=== PATIENT | female | born 1940 | race Caucasian/White ===

== ENCOUNTER 2022-11-18 14:01 | Observation (INO) | payer BC, OTHER ==
[~2022-11-18] VITALS: Ht 167.6 cm; Wt 57.4 kg
--- NOTE | 2022-11-18 14:24 | NUR ---
EKG DONE BY ED
--- NOTE | 2022-11-18 14:25 | NUR ---
PT BIB EMS FROM HOME WITH C/O PALPITATIONS, CHEST PAIN AT HOME, WITH DIZZINESS. PT IS COMPLAINING OF A-FIB. HX - DM, HTN, HYPERLIP, CHF, A-FIB, OSTEOARTHRITIS. 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 PENDING MD SOTELO AND ORDERS.
[2022-11-18] MEDS ORDERED: NITROGLYCERIN 0.4 MG TAB.SUBL SL ONE (14:30)
--- NOTE | 2022-11-18 14:40 | NUR ---
DR. ABEBE AT BEDSIDE EXAMINING THE PT.
--- NOTE | 2022-11-18 15:57 | NUR ---
covid swab collected
[2022-11-18 16:00] LABS: BASOPHILS % (AUTO) 0.2 % (0.0-2.0); EOSINOPHILS % (AUTO) 0.2 % (0.0-4.0); HEMATOCRIT 30.5 % (36-48); HEMOGLOBIN 10.4 g/dL (12.0-16.0); LYMPHOCYTES # (AUTO) 0.5 K/uL (1.0-5.5); LYMPHOCYTES % (AUTO) 7.1 % (20.5-51.5); MEAN CORPUSCULAR HEMOGLOBIN 30 pg (27-31); MEAN CORPUSCULAR HGB CONC 34 % (32-36); MEAN CORPUSCULAR VOLUME 87 fL (79.0-98.0); MONOCYTES # (AUTO) 0.2 K/uL (0.0-1.0); MONOCYTES % (AUTO) 3.9 % (1.7-9.3); NEUTROPHILS # (AUTO) 5.7 K/uL (1.8-7.7); NEUTROPHILS % (AUTO) 88.6 % (40.0-70.0); PLATELET COUNT (AUTO) 229 K/uL (130-430); RED BLOOD CELL COUNT(AUTO) 3.52 MIL/uL (4.2-6.2); RED CELL DISTRIBUTION WIDTH 14.3 % (9.0-15.0); WHITE BLOOD COUNT (AUTO) 6.4 K/uL (4.8-10.8)
[2022-11-18 16:10] LABS: ANION GAP 9 (5-15); CALCIUM 9.8 mg/dL (8.4-11.0); CHLORIDE 106 mmol/L (98-107); CREATININE 1.53 mg/dL (0.55-1.30); GLUCOSE 173 mg/dL (70-99); UREA NITROGEN, BLOOD 22 mg/dL (8-21)
[2022-11-18 16:23] LABS: ALANINE AMINOTRANSFERASE 23 U/L (12-78); ALBUMIN 3.4 g/dL (3.4-4.8); ASPARTATE AMINOTRANSFERASE 23 U/L (10-37); PHOSPHORUS 2.6 mg/dL (2.7-4.5); THYROID STIMULATING HORMONE 2.03 uIu/mL (0.34-4.82); TOTAL BILIRUBIN 0.8 mg/dL (0.0-1.0)
--- NOTE | 2022-11-18 17:11 | NUR ---
Note enidsruthi in EDM - 11/18/22 at 1739 by JERZY Admit bed requested Patient will be admitted to care of . Admitted to tele unit. Diagnosis CHF Inpatient (Yes or No) y Observation (Yes or No) n Orientation concerns or request close to nursing station (Yes or No) n Covid Status negative On vent or bipap no Isolation requirements no Needs a sitter no From Home (Yes or if No enter name of facility) home Requires Dialysis (Yes or No) no Med Rec Completed (Yes of No) pending
[2022-11-18] MEDS ORDERED: FUROSEMIDE 20 MG/2 ML VIAL IVP ONE (17:15)
--- NOTE | 2022-11-18 17:39 | NUR ---
Admit bed requested Patient will be admitted to care of . Admitted to TELE unit. Diagnosis CHF Inpatient (Yes or No) Y Observation (Yes or No) N Orientation concerns or request close to nursing station (Yes or No) N Covid Status NEG On vent or bipap NO Isolation requirements NO Needs a sitter NO From Home (Yes or if No enter name of facility) HOME Requires Dialysis (Yes or No) NO Med Rec Completed (Yes of No) PENDING
[2022-11-18] MEDS ORDERED: CITA20TA16 PO (18:18)
[2022-11-18] MEDS ORDERED: APIX5TAB4 PO (18:18)
[2022-11-18] MEDS ORDERED: METO25TA3 PO (18:18)
[2022-11-18] MEDS ORDERED: LOSA50TA28 PO (18:18)
[2022-11-18] MEDS ORDERED: METF-1069 PO (18:18)
[2022-11-18] MEDS ORDERED: LEVO25CA4 PO (18:18)
[2022-11-18] MEDS ORDERED: PRO40 PO (18:18)
[2022-11-18] MEDS ORDERED: ATOR-1 PO (18:18)
[2022-11-18] MEDS ORDERED: GABA300T25 PO (18:18)
[2022-11-18] MEDS ORDERED: METO50CA PO (18:18)
--- NOTE | 2022-11-18 21:55 | NUR ---
ADMISSION ASSESSMENT NOTES; pt. admitted from ER, report given by nurse Gonzalez, will be admitted by nurse Lion. oriented to room, use of call light. on safety precautions. placed on sander hand and shows artrial fib, controlled rate. on room air, denies shortness of breath. noted some productive cough. when auscultated. no edema. IV lock on left ac, call light within reach.
--- NOTE | 2022-11-18 22:27 | NUR ---
Patient will be admitted to care of [facility]. Admitted to unit. Will go to room . Belongings list completed. Complete and up to date summary report printed. SBAR report to be given at bedside with opportunity for questions.
[2022-11-18 22:30] VITALS: BP_SYST 147
[2022-11-18 22:31] VITALS: BP_SYST 147
[2022-11-19 00:01] VITALS: BP_SYST 130
--- NOTE | 2022-11-19 00:15 | NUR ---
NOTES: pt. still awake, resting and checking her phone. ambulated earlier to void wit assist.
--- NOTE | 2022-11-19 02:08 | NUR ---
NOTES: pt. called and c/o she is having problem to breathe, checked O2 sat 100%. placed O2 @ 2 liters/nc for comfort, feeling a little better. instructed to call for any further problem.
--- NOTE | 2022-11-19 05:00 | NUR ---
NOTES: condition observed. no further complaints.
--- NOTE | 2022-11-19 06:57 | NUR ---
CLOSING NOTES; AWAKENED, AMBULATED TO RESTROOM WITH ASSIST. NO FURTHER COMPLAINTS. WILL ENDORSE TO INCOMING SHIFT. CALL LIGHT WITHIN REACH.
[2022-11-19 08:00] VITALS: BP_SYST 161
--- NOTE | 2022-11-19 08:46 | NUR ---
CONSULTATION PAGED/CALLED Reason for Consultation: [] CHF Person Who was Notified: [] DR Tammie DICKERSON Consulting Physician: [] SANTO LIVINGSTON PICKER OPERATOR FOR DR DICKERSON Pipeliner Specialty: [] CARDIO Ordering Physician: [] DR SMITH
--- NOTE | 2022-11-19 10:00 | NUR ---
CALLED DR. NAVA'S EXCHANGE AND IT WAS DR. SMITH MANAGED CARE PROVIDER. SPOKE TO DR. SMITH AND MADE HIM AWARE THAT THE PATIENT CAME LAST NIGHT AND HER MEDS ARE NOT RECONCILED AND SOME MEDS ARE NOT PUT IN. MD SAID TO GO AHEAD UPDATE THE HOME MEDS AND HE'LL BE HERE SHORTLY. ALSO MADE MD AWARE THAT PATIENT HAS DIABETES AND THERE'S NO ORDER FOR INSULIN. BLOOD SUGAR @ 0700 WAS 172, PATIENT HAS A CCHO DIET AND EATING. PATIENT'S COMFORTABLE AT THIS TIME, NO C/O PAIN OR DISCOMFORT, NO S/S OF RESPIRATORY DISTRESS.
[2022-11-19] MEDS ORDERED: ASPI-1155 PO (12:05)
[2022-11-19] MEDS ORDERED: TOP25 PO (12:05)
[2022-11-19] MEDS ORDERED: FURO-150 PO (12:05)
[2022-11-19] MEDS ORDERED: PRED20TA PO (12:05)
[2022-11-19] MEDS ORDERED: AMIO100T4 PO (12:09)
[2022-11-19] MEDS ORDERED: MULT-1089 PO (12:09)
[2022-11-19 13:00] VITALS: BP_SYST 114
--- NOTE | 2022-11-19 13:06 | NUR ---
Blood Sugar is 136. Patient is Diabetic, awaiting for MD to write admission orders.
[2022-11-19] MEDS ORDERED: METOPROLOL SUCCINATE 50 MG TAB.SR.24H (TOPROL XL) PO ONE (15:00)
[2022-11-19] MEDS ORDERED: FUROSEMIDE 20 MG TABLET PO ONE (15:00)
[2022-11-19] MEDS ORDERED: APIXABAN 2.5 MG TABLET PO ONE (15:00)
[2022-11-19 16:10] VITALS: BP_SYST 107
[2022-11-19 18:11] VITALS: BP_SYST 109
--- NOTE | 2022-11-19 18:55 | NUR ---
D/C Patient to home via personal vehicle, picked up by marty. Patient given medication reconciliation form and D/C instructions. Exit Care provided. Patient verbalized understanding. MD discussed with patient the results and treatment provided. Ambulatory with steady gait for discharge to home. Patient in stable condition, ID band removed. IV catheter removed, intact and dressing applied, no active bleeding. Patient educated on heart failure. All belongings sent with patient. Patient had an appointment with PCP Monday but was cancelled due to came to ER. Patient stated, that she'll call PCP the first thing on Monday for an appointment. Patient is a/o x4, verbally responsive in no acute distress, no c/o dizziness, chest pain or discomfort. BP 109/59; MS 68; RR 18; o2 sat on RA 98-100%. Denies any pain or discomfort.
[2022-11-19] MEDS ORDERED: APIXABAN 2.5 MG TABLET PO SCH (21:00)
[2022-11-20] MEDS ORDERED: FUROSEMIDE 20 MG TABLET PO SCH (09:00)
[2022-11-20] MEDS ORDERED: METOPROLOL SUCCINATE 50 MG TAB.SR.24H (TOPROL XL) PO SCH (09:00)
[2022-11-20] MEDS ORDERED: ATORVASTATIN 20 MG TABLET PO SCH (21:00)
== END 2022-11-19 18:45 | disposition home or self-care (01) ==
LOC: SED 14:01 → INTOOBSV 17:42 → STU 17:42
PROVIDERS: ADMIT Internal Medicine; ATTEND Internal Medicine
DX: I13.0 Hypertensive heart and chronic kidney disease with heart failure and stage 1 through stage 4 chronic kidney disease, or unspecified chronic kidney disease (principal); Z20.822 Contact with and (suspected) exposure to COVID-19; E11.22 Type 2 diabetes mellitus with diabetic chronic kidney disease; I50.9 Heart failure, unspecified; N18.9 Chronic kidney disease, unspecified; E78.5 Hyperlipidemia, unspecified; I25.10 Atherosclerotic heart disease of native coronary artery without angina pectoris; I48.91 Unspecified atrial fibrillation; Z79.82 Long term (current) use of aspirin; Z79.899 Other long term (current) drug therapy; Z87.891 Personal history of nicotine dependence
CPT/HCPCS: 80053; 83880 ×2; 83735; 84100; 84443; 85025; 84484 ×2; 36415 ×2; 71045; 99284; 96374; 87426; 93306; J1940; G0378 ×2; 99285